=== PATIENT | female | born 2000 | race Caucasian/White ===

== ENCOUNTER 2018-09-09 13:47 | Emergency (ER) | payer OTHER ==
[~2018-09-09] VITALS: Ht 170.2 cm; Wt 58.4 kg
--- NOTE | 2018-09-09 14:04 | NUR ---
18 Y/O BIB AMBULANCE WITH C/O DIZZINESS. "I WAS AT SCHOOL AND STANDING. I HAD TO SIT DOWN BECAUSE I FELT LIKE I WAS GOING TO PASS OUT. I'VE SEEN A DR FOR THIS BECAUSE IT'S HAPPENED BEFORE." NO ACUTE DISTRESS NOTED. FRIEND BEDSIDE. 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 3501 mL NS ADMINISTERED PRIOR TO ARRIVAL. PT STATES "I FEEL BETTER SITTING UP AFTER I GOT THE FLUIDS FROM THEM" NO C/O N/V/D, TRAUMA, SYNCOPE, CP, SOB.
[2018-09-09 14:27] LABS: BASOPHILS # (AUTO) 0.03 x10^3/uL (0-0.3); BASOPHILS % (AUTO) 0 % (0-1); EOSINOPHILS # (AUTO) 0.01 x10^3/uL (0-0.8); EOSINOPHILS % (AUTO) 0 % (1-7); LYMPHOCYTES # (AUTO) 1.15 x10^3/uL (1-6.1); LYMPHOCYTES % (AUTO) 12 % (22-44); MD NO; MEAN CORPUSCULAR HEMOGLOBIN 30.5 pg (27.0-34.8); MEAN CORPUSCULAR HGB CONC 33.5 g/dL (32.4-35.8); MEAN CORPUSCULAR VOLUME 90.8 fL (80-100); MEAN PLATELET VOLUME 8.4 fL (7.4-10.4); MONOCYTES # (AUTO) 0.76 x10^3/uL (0-1.4); MONOCYTES % (AUTO) 8 % (2-9); NEUTROPHILS # (AUTO) 7.92 x10^3/uL (1.8-8.0); NEUTROPHILS % (AUTO) 80 % (42-75); PLATELET COUNT 248 x10^3/uL (130-400); RED BLOOD COUNT 3.95 x10^6/uL (3.82-5.3); RED CELL DISTRIBUTION WIDTH 12.7 % (9.6-15.2)
[2018-09-09 14:31] LABS: ALBUMIN 3.2 g/dL (3.4-5.0); ANION GAP 7 mmol/L (5-15); CALCIUM 8.1 mg/dL (8.5-10.1); CHLORIDE 109 mmol/L (98-107)
[2018-09-09 14:37] LABS: CREATININE 0.77 mg/dL (0.55-1.02)
--- NOTE | 2018-09-09 15:04 | NUR ---
PT AMBULATORY WITH STEADY GAIT TO BATHROOM. PT STATES "i FEEL FINE TO WALK THERE. MY FRIEND CAN GO WITH ME. " NO ACUTE DISTRESS NOTED.
--- NOTE | 2018-09-09 15:24 | NUR ---
PT RESTING ON GURNEY. REATTACHED TO ALL MONITORS. FRIEND BEDSIDE. NO NEEDS REQUESTED AT THIS TIME.
[2018-09-09] MEDS ORDERED: SODIUM CHLORIDE 0.9%, 500ML IVBOLUS ONE (15:30)
[2018-09-09 15:45] VITALS: BP 123/80
--- NOTE | 2018-09-09 16:16 | NUR ---
PT RESTING ON GURNEY. NO ACUTE DISTRESS NOTED. FRIEND BEDSIDE. NO NEEDS REQUESTED AT THIS TIME.
--- NOTE | 2018-09-09 16:23 | NUR ---
Patient/Caregiver given discharge instructions and they have confirmed that they understand the instructions. Patient ambulatory with steady gait.
== END 2018-09-09 16:25 | disposition home or self-care (01) ==
LOC: ED 16:05
DX: R55 Syncope and collapse (principal)
CPT/HCPCS: 36415; 80048; 82040; 83735; 84703; 85025; 93005; 96360; 99284; J7040

== ENCOUNTER 2019-07-06 05:08 | Emergency (ER) | payer OTHER ==
[~2019-07-06] VITALS: Ht 170.2 cm; Wt 54.5 kg
[2019-07-06] MEDS ORDERED: DIPHENHYDRAMINE 50 MG/ML, 1ML IVPush STA (05:26)
[2019-07-06] MEDS ORDERED: ONDANSETRON 2MG/ML, 2ML IVPush ONE (05:30)
[2019-07-06] MEDS ORDERED: SODIUM CHLORIDE 0.9% 1,000ML IVBOLUS ONE (05:30)
[2019-07-06] MEDS ORDERED: methylPREDNISolone SOD SUCC 125 MG/2 ML IVPush ONE (05:30)
[2019-07-06] MEDS ORDERED: FAMOTIDINE 20 MG/2 ML IVPush ONE (05:30)
[2019-07-06] MEDS ORDERED: SODIUM CHLORIDE FLUSH 10ML SYR IVF ONE (05:30)
[2019-07-06] MEDS ORDERED: ONDANSETRON 2MG/ML, 2ML ONE (05:32)
[2019-07-06] MEDS ORDERED: FAMOTIDINE 20 MG/2 ML ONE (05:32)
[2019-07-06] MEDS ORDERED: DIPHENHYDRAMINE 50 MG/ML, 1ML ONE (05:32)
[2019-07-06] MEDS ORDERED: methylPREDNISolone SOD SUCC 125 MG/2 ML ONE (05:32)
[2019-07-06 05:52] LABS: BASOPHILS % (AUTO) 0 % (0-1); EOSINOPHILS # (AUTO) 0.23 x10^3/uL (0-0.4); EOSINOPHILS % (AUTO) 8 % (1-7); LYMPHOCYTES # (AUTO) 1.25 x10^3/uL (1-3.4); LYMPHOCYTES % (AUTO) 41 % (22-44); MD NO; MEAN CORPUSCULAR HEMOGLOBIN 30.7 pg (27.0-34.8); MEAN CORPUSCULAR HGB CONC 33.5 g/dL (32.4-35.8); MEAN CORPUSCULAR VOLUME 91.7 fL (80-100); MEAN PLATELET VOLUME 8.2 fL (7.4-10.4); MONOCYTES # (AUTO) 0.31 x10^3/uL (0.2-0.8); MONOCYTES % (AUTO) 10 % (2-9); NEUTROPHILS # (AUTO) 1.28 x10^3/uL (1.8-6.8); NEUTROPHILS % (AUTO) 42 % (42-75); PLATELET COUNT 211 x10^3/uL (130-400); RED BLOOD COUNT 3.97 x10^6/uL (3.82-5.3); RED CELL DISTRIBUTION WIDTH 12.5 % (9.6-15.2)
[2019-07-06 06:02] LABS: CHLORIDE 107 mmol/L (98-107)
[2019-07-06 06:03] LABS: ALANINE AMINOTRANSFERASE 24 U/L (12-78); ALBUMIN 3.1 g/dL (3.4-5.0); ANION GAP 4 mmol/L (5-15); CALCIUM 7.8 mg/dL (8.5-10.1)
[2019-07-06 06:07] LABS: ALKALINE PHOSPHATASE 59 U/L (45-117); BILIRUBIN,TOTAL 0.3 mg/dL (0.2-1.0); TOTAL PROTEIN 6.5 g/dL (6.4-8.2)
[2019-07-06 06:11] VITALS: BP 120/78
--- NOTE | 2019-07-06 06:11 | NUR ---
PT STATES SHE FEELS A LOT BETTER. STATES HER BREATHING IS EASIER AND SHE DOESNT FEEL LIKE SHE IS GOING TO BLACK OUT
== END 2019-07-06 06:53 | disposition home or self-care (01) ==
LOC: ED 05:56
DX: T78.49XA Other allergy, initial encounter (principal); X58.XXXA Exposure to other specified factors, initial encounter; R21 Rash and other nonspecific skin eruption; I95.1 Orthostatic hypotension
CPT/HCPCS: 36415; 80053; 84703; 85025; 93005; 96361; 96374; 96375; 99284; J1200; J2405; J2930; J3490; J7030

== ENCOUNTER 2019-09-09 14:42 | Emergency (ER) | payer OTHER ==
[~2019-09-09] VITALS: Ht 170.2 cm; Wt 57.0 kg
--- NOTE | 2019-09-09 15:02 | NUR ---
Casim[facility] funk in [facility] - 09/09/19 at 1547 by MINERVA PT AMBULATED TO ROOM STEADILY, CHANGED INTO GOWN, UPRIGHT ON GURNEY AWAKE & COMFORTABLE, RESPONDS APPROP TO STAFF, NAD, COMFORT MEASURES PROVIDED, CALL LIGHT WITHIN REACH.
[2019-09-09 15:23] LABS: BASOPHILS # (AUTO) 0.02 x10^3/uL (0-0.1); BASOPHILS % (AUTO) 0 % (0-1); EOSINOPHILS # (AUTO) 0.24 x10^3/uL (0-0.4); EOSINOPHILS % (AUTO) 3 % (1-7); LYMPHOCYTES # (AUTO) 2.28 x10^3/uL (1-3.4); LYMPHOCYTES % (AUTO) 32 % (22-44); MD NO; MEAN CORPUSCULAR HEMOGLOBIN 30.9 pg (27.0-34.8); MEAN CORPUSCULAR HGB CONC 33.2 g/dL (32.4-35.8); MEAN PLATELET VOLUME 8.6 fL (7.4-10.4); MONOCYTES # (AUTO) 0.49 x10^3/uL (0.2-0.8); MONOCYTES % (AUTO) 7 % (2-9); NEUTROPHILS # (AUTO) 4.22 x10^3/uL (1.8-6.8); NEUTROPHILS % (AUTO) 58 % (42-75); PLATELET COUNT 320 x10^3/uL (130-400); RED BLOOD COUNT 4.42 x10^6/uL (3.82-5.3); RED CELL DISTRIBUTION WIDTH 13.2 % (9.6-15.2)
[2019-09-09 15:33] LABS: ALANINE AMINOTRANSFERASE 18 U/L (12-78); ANION GAP 5 mmol/L (5-15); CALCIUM 8.9 mg/dL (8.5-10.1); CHLORIDE 106 mmol/L (98-107)
[2019-09-09 15:35] LABS: ALKALINE PHOSPHATASE 64 U/L (45-117); BILIRUBIN,TOTAL 0.5 mg/dL (0.2-1.0); CREATININE 0.83 mg/dL (0.55-1.02); TOTAL PROTEIN 7.9 g/dL (6.4-8.2)
--- NOTE | 2019-09-09 15:42 | NUR ---
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
--- NOTE | 2019-09-09 15:42 | NUR ---
PT AMBULATED TO ROOM STEADILY, CHANGED INTO GOWN, UPRIGHT ON GURNEY AWAKE & COMFORTABLE, RESPONDS APPROP TO STAFF, NAD, COMFORT MEASURES PROVIDED, CALL LIGHT WITHIN REACH.
[2019-09-09 15:49] VITALS: BP 135/95
[2019-09-09 16:11] LABS: TROPONIN I < 0.015 ng/mL (0.000-0.045)
--- NOTE | 2019-09-09 16:11 | NUR ---
requested records from [facility]
--- NOTE | 2019-09-09 16:32 | NUR ---
Patient given discharge instructions and they have confirmed that they understand the instructions. Patient ambulatory with steady gait.
== END 2019-09-09 17:03 | disposition home or self-care (01) ==
LOC: ED 16:50
DX: R55 Syncope and collapse (principal); R11.2 Nausea with vomiting, unspecified; R42 Dizziness and giddiness; R07.89 Other chest pain
CPT/HCPCS: 36415; 80053; 84484; 85025; 93005; 99284

== ENCOUNTER → 2019-10-03 | Outpatient (CLI) | payer OTHER | END | disposition home or self-care (01) | LOC: CFH 13:16 | PROVIDERS: ATTEND Internal Medicine Cardiovascular Disease | DX: I07.1 Rheumatic tricuspid insufficiency (principal) | CPT/HCPCS: 93306 ==